=== PATIENT | female | born 1995 | race Caucasian/White ===

== ENCOUNTER 2016-12-11 14:41 | Emergency (ER) | payer MEDICAID ==
[~2016-12-11] VITALS: Ht 157.5 cm; Wt 77.1 kg
[2016-12-11 14:52] VITALS: BP 156/69; PULSE 83; RESP 15; TEMP 97.7; O2SAT 98
--- NOTE | 2016-12-11 14:55 | NUR ---
Patient triaged and placed in waiting room. VSS and patient appears in no acute distress at this time. Accompanied by self, awaiting available bed, and MD notified of need for MSE.
--- NOTE | 2016-12-11 15:12 | NUR ---
Dr. Obrien evaluating pt in triage room.
[2016-12-11 15:14] VITALS: BP 156/69; PULSE 83; RESP 15; TEMP 97.7; O2SAT 98
--- NOTE | 2016-12-11 15:14 | NUR ---
Patient given written and verbal discharge instructions and verbalizes understanding. ER MD discussed with patient the results and treatment provided. Patient in stable condition. ID arm band removed. Rx of polytrim given. Patient educated on pain management and to follow up with PMD. Pain Scale 3/10. Opportunity for questions provided and answered.
== END 2016-12-11 15:14 | disposition home or self-care (01) ==
LOC: SED 14:41
DX: H00.012 Hordeolum externum right lower eyelid (principal)
CPT/HCPCS: 99283

== ENCOUNTER 2018-12-22 14:27 | Emergency (ER) | payer MEDICAID ==
[~2018-12-22] VITALS: Ht 157.5 cm; Wt 77.1 kg
[2018-12-22 14:30] VITALS: BP_SYST 130
[2018-12-22 15:05] LABS: BILIRUBIN,URINE 1+ (NEGATIVE); BLOOD, URINE NEGATIVE (NEGATIVE); CLARITY/URINE CLEAR (CLEAR); COLOR,URINE YELLOW (YELLOW); GLUCOSE,URINE TRACE (NEGATIVE); KETONES,URINE NEGATIVE (NEGATIVE); LEUKOCYTE ESTERASE ,URINE 2+ (NEGATIVE); NITRITE, URINE NEGATIVE (NEGATIVE); PROTEIN URINE 1+ (NEGATIVE)
[2018-12-22 15:21] LABS: BACTERIA,URINE MODERATE /HPF (None Seen); RBC,URINE 0-3 /HPF (0-3); WBC,URINE 20-50 /HPF (0-3)
[2018-12-22] MEDS ORDERED: NITROFURANTOIN MONOHYD/M-CRYST 100 MG CAPSULE PO ONE (16:00)
[2018-12-22 16:45] VITALS: BP_SYST 128
== END 2018-12-22 16:45 | disposition home or self-care (01) ==
LOC: SED 14:27
DX: O23.43 Unspecified infection of urinary tract in pregnancy, third trimester (principal); R03.0 Elevated blood-pressure reading, without diagnosis of hypertension; Z3A.30 30 weeks gestation of pregnancy
CPT/HCPCS: 81000-TC; 87086; 99283